=== PATIENT | male | born 1980 | race Caucasian/White ===

== ENCOUNTER 2019-09-27 11:01 | Emergency (ER) | payer OTHER, BC ==
[2019-09-27] MEDS ORDERED: HYDROmorphone 1 MG/ML Syringe IM ONE (11:48)
[2019-09-27] MEDS ORDERED: Ondansetron 4 MG Tab.DIS PO ONE (11:49)
--- NOTE | 2019-09-27 12:01 | EDM.PDOC ---
ED HPI GENERAL MEDICAL PROBLEM - General Chief Complaint: Back Pain or Injury Stated Complaint: BACK PAIN Time Seen by Provider: 09/27/19 11:27 Source of Information: Reports: Patient, RN Notes Reviewed History Limitations: Reports: No Limitations - History of Present Illness INITIAL COMMENTS - FREE TEXT/NARRATIVE: Patient is a 39-year-old male who presents to the ED for evaluation of his lower back pain. Patient notes that this started roughly 2 days ago, and is constant in nature, but did seem to worsen this morning at around 3 AM. He states he believes he hurt it while he was getting out of his bed, he states there is a sharp/stabbing/shocklike pain that is there all the time, with a deep ache as well. Patient states is very painful to put weight on his but, but he denies any trauma to the area, he states he did not have any falls or otherwise. Patient states he has not had pain like this before ever. 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 He states that he also gets steroid shots 4 times a year for the disc injury in his neck. Patient denies any other sick-like symptoms, fever/chills, nausea/vomiting/diarrhea, cough/shortness of breath, any dysuria, frequency or urgency, or any history of kidney stones. Patient states his primary care provider is Hi Tovar. Bilateral Lower Back Pain Score (Numeric/FACES): 10 - Related Data Allergies Allergy/AdvReac Type Severity Reaction Status Date / Time No Known Allergies Allergy Verified 09/27/19 11:15 Home Meds: Home Meds ALPRAZolam [Xanax] 1 tab PO DAILY PRN 09/27/19 [History] Acetaminophen [Acetaminophen Extra Strength] 1,000 mg PO BID 09/27/19 [History] Aspirin 325 mg PO DAILY 09/27/19 [History] DULoxetine [Cymbalta] 20 mg PO Q3D 09/27/19 [History] Gabapentin [Neurontin] 600 mg PO TID 09/27/19 [History] Orphenadrine [Norflex] 100 mg PO BID PRN #20 tab 09/27/19 [Rx] predniSONE 20 mg PO ASDIRECTED #15 tab 09/27/19 [Rx] traMADol [Ultram] 50 mg PO Q6H PRN #20 tab 09/27/19 [Rx] Past Medical History HEENT History: Reports: Allergic Rhinitis Respiratory History: Reports: Asthma Musculoskeletal History: Reports: Neck Pain, Chronic (disc injury/issue) Psychiatric History: Reports: Anxiety, Depression - Past Surgical History Musculoskeletal Surgical History: Reports: Shoulder Surgery Social & Family History - Family History Family Medical History: Noncontributory - Tobacco Use Smoking Status *Q: Current Every Day Smoker Years of Tobacco use: 20 Packs/Tins Daily: 1 - Caffeine Use Caffeine Use: Reports: Coffee - Alcohol Use Number of Drinks Per Day: 5 - Recreational Drug Use Recreational Drug Use: Yes Drug Use in Last 12 Months: No Recreational Drug Type: Reports: Marijuana/Hashish ED ROS GENERAL - Review of Systems Review Of Systems: Comprehensive ROS is negative, except as noted in HPI. ED EXAM,LOWER BACK PAIN/INJURY - Physical Exam Exam: See Below Exam Limited By: No Limitations General Appearance: Alert, WD/WN, No Apparent Distress (pt does appear to be in moderate amount of pain) Ears: Normal External Exam Nose: Normal Inspection Throat/Mouth: Normal Inspection Head: Atraumatic, Normocephalic Respiratory/Chest: No Respiratory Distress, Lungs Clear, Normal Breath Sounds, No Accessory Muscle Use, Chest Non-Tender Cardiovascular: Normal Peripheral Pulses, Regular Rate, Rhythm, No Murmur GI/Abdominal: Normal Bowel Sounds, Soft, Non-Tender, No Distention, No Mass Back Exam: Normal Inspection, Decreased Range of Motion Extremities: Normal Inspection, Normal Capillary Refill Neurological: Alert, Normal Mood/Affect, Normal Dorsiflexion, Normal Plantar Flexion, No Motor/Sensory Deficits, Difficulty Walking (d/t pain in lower back). No: Saddle Anesthesia Psychiatric: Normal Affect, Normal Mood Skin Exam: Warm, Dry, Intact, Normal Color, No Rash Course - Vital Signs Last Recorded V/S: Last Vital Signs Temp 99.5 F 09/27/19 11:11 Pulse 105 H 09/27/19 11:11 Resp 20 09/27/19 11:11 BP 166/101 H 09/27/19 11:11 Pulse Ox 97 09/27/19 11:11 - Orders/Labs/Meds Orders: Active Orders 24 hr Category Date Time Status Orphenadrine [Norflex] Med 09/27/19 13:30 Ordered 100 mg PO BID Medication Orders Orphenadrine Citrate (Norflex) 100 mg PO BID BRENDA Last Admin: 09/27/19 13:41 Dose: 100 mg Documented by: Meds: Medications Generic Name Dose Route Start Last Admin Trade Name Julianna PRN Reason Stop Dose Admin Orphenadrine Citrate 100 mg 09/27/19 13:30 09/27/19 13:41 Norflex PO 100 mg BID BRENDA Administration Discontinued Medications Generic Name Dose Route Start Last Admin Trade Name Julianna PRN Reason Stop Dose Admin Hydromorphone HCl 1 mg 09/27/19 11:48 09/27/19 11:58 Dilaudid IM 09/27/19 11:49 1 mg ONETIME ONE Administration Lorazepam 1 mg 09/27/19 12:35 09/27/19 12:44 Ativan IM 09/27/19 12:36 1 mg ONETIME ONE Administration Ondansetron HCl 4 mg 09/27/19 11:49 09/27/19 11:58 Zofran Odt PO 09/27/19 11:50 4 mg ONETIME ONE Administration Tramadol HCl 50 mg 09/27/19 13:21 09/27/19 13:40 Ultram PO 09/27/19 13:22 50 mg ONETIME ONE Administration - Re-Assessments/Exams Free Text/Narrative Re-Assessment/Exam: 09/27/19 11:56 Patient presents to the ED for the evaluation of his low back pain. Have ordered 1 mg IM Dilaudid for initial pain management, as he is in too much pain to adequately assess what is going on at this time. I do believe he could be having some sort of discogenic issues in his low back, that was aggravated by twisting wrong while waking up today. 09/27/19 12:46 Patient is having continued pain, he states the Dilaudid helped a tiny bit, but still is an obvious amount of pain. I do believe patient would benefit from imaging, will CT the area and provide 1 mg IM Ativan to try to help him to relax, and for muscle spasm relief. 09/27/19 13:18 CT has been performed, there does appear to be loss of lumbar lordosis, and a possible area of disc bulging to L3-L4 posteriorly, but no signs of any obvious fracture or other bony abnormalities. Official CT read is pending at this time. RN reports that the patient does seem to be a little bit more relaxed with Ativan. We will likely try to get him home with a course of prednisone for suspected disc derangement, and also some muscle relaxers for muscle spasms. 09/27/19 14:37 CT demonstrates a mild circumferential disc bulge seen at L3-L4, diffuse circumferential disc bulge is seen on L4-L5, possible disc herniation posteriorly to the left of the midline, there is moderately severe central canal stenosis, but the neural foramina are felt to be patent where the nerve roots exit. L5-S1 demonstrates a mild physiologic disc bulge seen, no central canal stenosis or neural foraminal stenosis. CT official impression is degenerative change noted above with most prominent finding L4-L5 diffuse circumferential disc bulge with possible disc herniation posterior to the left of the midline causing moderately severe central canal stenosis. Departure - Departure Time of Disposition: 13:22 Disposition: Home, Self-Care 01 Condition: Good Clinical Impression: Low back pain Qualifiers: Chronicity: acute Back pain laterality: midline Sciatica presence: unspecified whether sciatica present Qualified Code(s): M54.5 - Low back pain - Discharge Information *PRESCRIPTION DRUG MONITORING PROGRAM REVIEWED*: Yes *COPY OF PRESCRIPTION DRUG MONITORING REPORT IN PATIENT LIAM: No Prescriptions: Orphenadrine [Norflex] 100 mg PO BID PRN #20 tab PRN Reason: Spasms predniSONE 20 mg PO ASDIRECTED #15 tab traMADol [Ultram] 50 mg PO Q6H PRN #20 tab PRN Reason: Pain Instructions: Acute Back Pain, Adult, Back Injury Prevention, [id number] Referrals: Hi Tovar Jr, MD [Primary Care Provider] - Forms: ED Department Discharge Additional Instructions: You have been evaluated in the ED for your lower back pain. Your lumbar CT demonstrated diffuse muscle spasms, and a few areas of a disc bulge. L4-L5, shows a possible disc herniation posteriorly, this is likely the source of your pain. Other disc bulges were minimal compared to this, there is quite a bit of diffuse degenerative osteoarthritic changes well. Please use ice/heat as tolerated to the affected area. You may take Tylenol 500 mg q6 hrs for pain relief. Please do so until you have a tolerable level of pain with activity. Do not exceed 4000mg Tylenol in a 24 hour time period. You were given a prescription for tramadol, Norflex, and prednisone. Tramadol is for pain not relieved by Tylenol alone, please take 1 tab every 6 hours as needed. Norflex is for muscle spasms, recommend you take 1 every 12 hours for the next few days. Prednisone is for the suspected disc/nerve impingement, please take as directed until gone unless told otherwise by different provider. You would likely benefit from a lower back MRI, and possible neurosurgical consult for further management. Please talk these over with your primary care provider, Dr. Hi Tovar. Please return to ED if your symptoms should change or worsen. Sepsis Event Note (ED) - Evaluation Sepsis Screening Result: No Definite Risk - Focused Exam Vital Signs: Vital Signs Temp Pulse Resp BP Pulse Ox 09/27/19 11:11 99.5 F 105 H 20 166/101 H 97 - My Orders Last 24 Hours: My Active Orders 09/27/19 13:30 Orphenadrine [Norflex] 100 mg PO BID - Assessment/Plan Last 24 Hours: My Active Orders 09/27/19 13:30 Orphenadrine [Norflex] 100 mg PO BID
[2019-09-27] MEDS ORDERED: LORazepam 2 MG/ML SDV IM ONE (12:35)
[2019-09-27] MEDS ORDERED: traMADol 50 MG Tab PO ONE (13:21)
[2019-09-27] MEDS ORDERED: Orphenadrine 100 MG Tab.ER PO SCH (13:30)
--- NOTE | 2019-09-27 14:16 | CT ---
CT lumbar spine Technique: Multiple axial sections were obtained from above the T11-12 disc through the L5-S1 discs. Reconstructed coronal and sagittal images were obtained. Comparison: No prior lumbar spine imaging is available. Findings: T11-12: Mild posterior disc space narrowing is seen. Posterior disc is preserved. No central canal stenosis or neural foraminal stenosis is seen. T12-L1: Mild posterior disc space narrowing is seen. Posterior disc is preserved. No central canal stenosis or neural foraminal stenosis is seen. L1-2: Posterior disc is preserved. No central canal stenosis or neural foraminal stenosis is seen. L2-3: Posterior disc is preserved. No central canal stenosis or neural foraminal stenosis is seen. L3-4: Mild circumferential disc bulge is seen. Posterior disc maintains a mild concave margin. No central canal stenosis or neural foraminal stenosis seen. Mild degenerative apophyseal change is seen. L4-5: Diffuse circumferential disc bulge is seen. Possible disc herniation posteriorly to the left of midline. There is moderately severe central canal stenosis. Neural foramina are felt to be patent where the nerve roots exit. L5-S1: Mild physiologic disc bulge is seen. No central canal stenosis or neural foraminal stenosis is seen. 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 Right apophyseal joint is normal. No fracture is seen. No abnormal subluxation is seen. Impression: 1. Degenerative change as noted above. Most prominent finding at L4-5 with diffuse circumferential disc bulge with possible disc herniation posterior to the left of midline causing moderately severe central canal stenosis. Diagnostic code #3 This report was dictated in MDT
== END 2019-09-27 15:05 | disposition home or self-care (01) ==
LOC: JD.ED 11:01
DX: M54.5 Low back pain (principal); F41.9 Anxiety disorder, unspecified; F32.9 Major depressive disorder, single episode, unspecified; F17.210 Nicotine dependence, cigarettes, uncomplicated; Z79.899 Other long term (current) drug therapy; Z79.82 Long term (current) use of aspirin
CPT/HCPCS: 72131; 96372; 99284; A9270; J1170; J2060; 99283